=== PATIENT | male | born 1990 | race Caucasian/White ===

== ENCOUNTER 2016-12-26 12:05 | Inpatient (IN) | payer OTHER ==
[~2016-12-26] VITALS: Ht 185.4 cm; Wt 86.8 kg
[~2016-12-26 12:05] MED LIST: BUSPAR15 MG PO; CITALOPRAM HBR20 MG PO; GABAPENTIN100 MG PO; GABAPENTIN400 MG PO; GABAPENTIN600 MG PO; GABAPENTIN800 MG PO; METHADONE HCL40 MG PO; METHADONE1 MG/1 ML PO; METHADONE10 MG/1 M1 PO; MOTRIN800 MG PO; NAPROXEN500 MG PO; NO HOME MEDS; NOHOMEMEDS; NORCO 5/3251 TABLET PO; QUETIAPINE FUM100 MG PO; QUETIAPINE FUM200 MG PO; QUETIAPINE FUM300 MG PO; SEROQUEL400 MG PO; XANAX2 MG PO
[2016-12-26 13:32] LABS: EOSINOPHIL (%) 6.4 % (0-5); EOSINOPHIL COUNT 0.4 K/uL (0-0.3); HEMATOCRIT 36.4 % (38.0-50.0); IMMATURE GRANULOCYTE (%) 0.4 % (0.0-0.7); INSTRUMENT ABS NEUTROPHIL CT 3.4 K/uL; LYMPHOCYTE COUNT 1.3 K/uL (1.0-2.8); MCH 29.9 PG (29.0-34.0); MCHC 35.4 G/DL (30.0-36.0); MCV 84.5 FL (86-99); MEAN PLAT.VOLUME 8.6 uM^3 (9.0-12.4); MONOCYTE (%) 8.9 % (3-12); MONOCYTE COUNT 0.5 K/uL (0-0.8); NEUTROPHIL (%) 61.2 % (45-76); NEUTROPHIL COUNT 3.4 K/uL (1.8-6.4); PLATELET COUNT 272 K/uL (156-360); RBC DIS.WIDTH-CV 12.6 % (11.8-14.6); RED BLOOD COUNT 4.31 M/uL (4.00-5.50); WHITE BLOOD COUNT 5.6 K/uL (4.1-10.2)
[2016-12-26 13:53] LABS: CHLORIDE 104 mEq/L (99-109); POTASSIUM 4.1 mEq/L (3.7-5.4); SODIUM 140 mEq/L (136-147)
[2016-12-26 13:56] LABS: GLUCOSE 123 mg/dL (70-99)
[2016-12-26 13:57] LABS: ANION GAP 10 MEQ/L (2-14); TOTAL BILIRUBIN 1.1 mg/dL (0.0-1.0)
[2016-12-26 13:59] LABS: ALKALINE PHOSPHATASE 88 IU/L (3-129); GFR ESTIMATE (CALCULATED) > 59 mL/min/; SERUM ETHYL ALCOHOL < 10 mg/dL
[2016-12-26 14:00] LABS: UREA NITROGEN (BUN) 24 mg/dL (9-23)
[2016-12-27 01:37] VITALS: BP 128/83
[2016-12-27 08:10] VITALS: BP 110/64
[2016-12-27 15:48] VITALS: BP 110/54
[2016-12-27 17:50] LABS: AMPHETAMINES QUANT VALUE 0 NG/ML; BARBITUATES QUANT VALUE 0 NG/ML; BENZODIAZEPINES, URINE SCREEN POSITIVE (200 ng/mL); OPIATES QUANTITATIVE VALUE 0 NG/ML
[2016-12-27 18:47] VITALS: BP 92/53
[2016-12-28 08:01] VITALS: BP 121/79
[2016-12-28 15:33] VITALS: BP 93/50
[2016-12-29 08:11] VITALS: BP 114/60
[2016-12-29 15:56] VITALS: BP 111/65
[2016-12-30 08:08] VITALS: BP 122/60
[2016-12-30 15:20] VITALS: BP 130/92
[2016-12-31 07:48] VITALS: BP 125/69
[2016-12-31 15:16] VITALS: BP 126/86
[2017-01-01 06:00] VITALS: BP 96/51
[2017-01-01 06:30] VITALS: BP 106/77
[2017-01-01 09:21] VITALS: BP 117/67
[2017-01-01 15:36] VITALS: BP 108/55
[2017-01-01 22:07] VITALS: BP 115/55
[2017-01-02 05:52] VITALS: BP 121/60
[2017-01-02 08:56] VITALS: BP 108/53
[2017-01-02 15:32] VITALS: BP 123/67
[2017-01-03 08:11] VITALS: BP 100/57
[2017-01-03 16:17] VITALS: BP 125/76
[2017-01-04 07:39] VITALS: BP 95/59
[2017-01-04 15:28] VITALS: BP 149/86
[2017-01-05 08:09] VITALS: BP 133/63
[2017-01-05 15:42] VITALS: BP 140/82
[2017-01-06 07:51] VITALS: BP 114/66
[2017-01-06 15:31] VITALS: BP 130/77
[2017-01-07 07:39] VITALS: BP 123/78
[2017-01-07 16:12] VITALS: BP 129/84
[2017-01-08 08:15] VITALS: BP 113/68
[2017-01-08 16:23] VITALS: BP 158/77
[2017-01-08 19:22] VITALS: BP 116/58
[2017-01-09 08:03] VITALS: BP 118/67
[2017-01-09 15:51] VITALS: BP 142/58
[2017-01-10 07:47] VITALS: BP 97/53
[2017-01-10 13:09] VITALS: BP 134/79
[2017-01-10 15:31] VITALS: BP 118/64
[2017-01-11 07:49] VITALS: BP 104/58
[2017-01-11 15:34] VITALS: BP 130/66
[2017-01-12 07:50] VITALS: BP 117/65
[2017-01-12 15:55] VITALS: BP 105/57
[2017-01-13 07:56] VITALS: BP 133/68
[2017-01-13] MEDS ORDERED: GABAPENTIN400 MG PO (09:23)
[2017-01-13] MEDS ORDERED: COGENTIN0.5 MG PO (09:23)
[2017-01-13] MEDS ORDERED: PRAZOSIN HCL1 MG PO (09:23)
[2017-01-13] MEDS ORDERED: METHADONE10 MG PO (09:23)
[2017-01-13] MEDS ORDERED: BUPROPION HCL150 M2 PO (09:23)
[2017-01-13] MEDS ORDERED: OLANZAPINE10 MG PO (09:23)
[2017-01-13] MEDS ORDERED: HALDOL5 MG PO ×2 (09:23)
== END 2017-01-13 12:49 | disposition home or self-care (01) | DRG 885 ==
LOC: EME → EDBD 12:05 → 1WEST 16:30 → EDOF 16:30 → 1WEST 12-27 01:28
PROVIDERS: Emergency Medicine
DX: F33.9 Major depressive disorder, recurrent, unspecified (principal); R45.850 Homicidal ideations; R45.851 Suicidal ideations; F41.1 Generalized anxiety disorder; F16.159 Hallucinogen abuse with hallucinogen-induced psychotic disorder, unspecified; F11.20 Opioid dependence, uncomplicated; F14.10 Cocaine abuse, uncomplicated; F13.10 Sedative, hypnotic or anxiolytic abuse, uncomplicated; F60.2 Antisocial personality disorder; E86.0 Dehydration; Z91.14 Patient's other noncompliance with medication regimen
CPT/HCPCS: 71020; 73130; 80053; 80306 90; 85025; 97150 GO; 97165 GO; 99281; 99285; G0480; J1630; J2060; Q0177

== ENCOUNTER 2017-01-15 18:22 | Inpatient (IN) | payer OTHER ==
[~2017-01-15] VITALS: Ht 182.9 cm; Wt 85.0 kg
[~2017-01-15 18:22] MED LIST changes: +BUPROPION HCL150 M2 PO; +COGENTIN0.5 MG PO; +HALDOL5 MG PO; +METHADONE10 MG PO; +OLANZAPINE10 MG PO; +PRAZOSIN HCL1 MG PO
[2017-01-15 19:07] LABS: HEMATOCRIT 42.4 % (38.0-50.0); MCH 29.5 PG (29.0-34.0); MCHC 35.6 G/DL (30.0-36.0); MCV 82.8 FL (86-99); MEAN PLAT.VOLUME 8.8 uM^3 (9.0-12.4); PLATELET COUNT 341 K/uL (156-360); RBC DIS.WIDTH-CV 12.3 % (11.8-14.6); RBC DIS.WIDTH-SD 37.1 % (39-53); RED BLOOD COUNT 5.12 M/uL (4.00-5.50)
[2017-01-15 19:08] LABS: WHITE BLOOD COUNT 8.8 K/uL (4.1-10.2)
[2017-01-15 19:13] LABS: CHLORIDE 105 mEq/L (99-109); POTASSIUM 4.7 mEq/L (3.7-5.4); SODIUM 139 mEq/L (136-147)
[2017-01-15 19:15] LABS: GLUCOSE 94 mg/dL (70-99)
[2017-01-15 19:16] LABS: ANION GAP 12 MEQ/L (2-14)
[2017-01-15 19:18] LABS: SERUM ETHYL ALCOHOL < 10 mg/dL
[2017-01-15 19:19] LABS: GFR ESTIMATE (CALCULATED) > 59 mL/min/
[2017-01-15 19:20] LABS: UREA NITROGEN (BUN) 26 mg/dL (9-23)
[2017-01-15 22:29] LABS: ADD MEDTOX COMMENT Y; AMPHETAMINE NEGATIVE (500 ng/mL); BARBITURATES NEGATIVE (200 ng/mL); BENZODIAZEPINES PRESUMPTIVE POSITIVE (150 ng/mL); COCAINE PRESUMPTIVE POSITIVE (150 ng/mL); INTERNAL CONTROLS VALID? YES; METHADONE PRESUMPTIVE POSITIVE (200 ng/mL); METHAMPHETAMINE NEGATIVE (500 ng/mL); OPIATES (MORPHINE) NEGATIVE (100 ng/mL); OXYCODONE NEGATIVE (100 ng/mL); PHENCYCLIDINE NEGATIVE (25 ng/mL); PROPOXYPHENE NEGATIVE (300 ng/mL); THC CANNABINOIDS NEGATIVE (50 ng/mL); TRICYCLIC ANTIDEPRESSANTS NEGATIVE (300 ng/mL)
[2017-01-15 22:56] LABS: BENZODIAZEPINES, URINE SCREEN POSITIVE (200 ng/mL)
[2017-01-16 00:51] VITALS: BP 122/76
[2017-01-16 07:36] VITALS: BP 120/69
[2017-01-16 15:45] VITALS: BP 113/59
[2017-01-17 07:58] VITALS: BP 130/70
[2017-01-17 16:13] VITALS: BP 127/78
[2017-01-18 08:10] VITALS: BP 105/55
[2017-01-19] MEDS ORDERED: UNABLE TO OBTAIN (18:09)
== END 2017-01-18 12:18 | disposition home or self-care (01) | DRG 881 ==
LOC: EME 18:22 → 1WEST 22:54 → EDOF 22:54 → 1WEST 22:54
DX: F32.9 Major depressive disorder, single episode, unspecified (principal); F60.2 Antisocial personality disorder; F11.20 Opioid dependence, uncomplicated; F16.10 Hallucinogen abuse, uncomplicated; F13.10 Sedative, hypnotic or anxiolytic abuse, uncomplicated; R44.0 Auditory hallucinations; F17.210 Nicotine dependence, cigarettes, uncomplicated
CPT/HCPCS: 80048; 84999; 85027; 90839; 97150 GO; 97166 GO; 99281; 99285; G0480; J0572; J0574; J1630; J2060

== ENCOUNTER 2017-01-19 14:28 | Emergency (ER) | payer OTHER ==
[~2017-01-19] VITALS: Ht 182.9 cm; Wt 87.7 kg
[2017-01-19 15:59] LABS: HEMATOCRIT 37.4 % (38.0-50.0); MCH 29.7 PG (29.0-34.0); MCHC 36.1 G/DL (30.0-36.0); MCV 82.4 FL (86-99); MEAN PLAT.VOLUME 8.5 uM^3 (9.0-12.4); PLATELET COUNT 256 K/uL (156-360); RBC DIS.WIDTH-CV 12.3 % (11.8-14.6); RBC DIS.WIDTH-SD 37.1 % (39-53); RED BLOOD COUNT 4.54 M/uL (4.00-5.50); WHITE BLOOD COUNT 7.3 K/uL (4.1-10.2)
[2017-01-19 16:14] LABS: ANION GAP 11 MEQ/L (2-14); CHLORIDE 103 MEQ/L (99-109); POTASSIUM 4.2 MEQ/L (3.7-5.4); SAMPLE HEMOLYSIS CHECK 0; SAMPLE ICTERIC CHECK 0; SAMPLE LIPEMIA CHECK 0; SODIUM 136 MEQ/L (136-147)
[2017-01-19 16:20] LABS: GFR ESTIMATE (CALCULATED) > 59 mL/min/; GLUCOSE 100 mg/dL (70-99); SERUM ETHYL ALCOHOL < 10 mg/dL; UREA NITROGEN (BUN) 22 mg/dL (9-23)
[2017-01-19 18:08] VITALS: BP 124/76
[2017-01-19] MEDS ORDERED: UNABLE TO OBTAIN (18:09)
== END 2017-01-19 18:12 | disposition home or self-care (01) ==
LOC: EME 14:28
PROVIDERS: Emergency Medicine
DX: F19.10 Other psychoactive substance abuse, uncomplicated (principal); R56.9 Unspecified convulsions; R51 Headache; R47.81 Slurred speech; R45.1 Restlessness and agitation; R00.0 Tachycardia, unspecified; F17.200 Nicotine dependence, unspecified, uncomplicated
CPT/HCPCS: 70450; 80048; 85027; 99281; 99285; G0480; J2060; J7030

== ENCOUNTER 2017-02-02 19:02 | Emergency (ER) | payer OTHER ==
[~2017-02-02] VITALS: Ht 185.4 cm; Wt 85.8 kg
[~2017-02-02 19:02] MED LIST changes: +UNABLE TO OBTAIN
[2017-02-02 21:21] LABS: CHLORIDE 108 mEq/L (99-109); POTASSIUM 3.8 mEq/L (3.7-5.4); SODIUM 142 mEq/L (136-147)
[2017-02-02 21:23] LABS: GLUCOSE 116 mg/dL (70-99); HEMATOCRIT 41.4 % (38.0-50.0); MCH 29.7 PG (29.0-34.0); MCV 84.7 FL (86-99); MEAN PLAT.VOLUME 8.5 uM^3 (9.0-12.4); PLATELET COUNT 255 K/uL (156-360); RBC DIS.WIDTH-CV 13.4 % (11.8-14.6); RED BLOOD COUNT 4.89 M/uL (4.00-5.50)
[2017-02-02 21:24] LABS: ANION GAP 11 MEQ/L (2-14)
[2017-02-02 21:25] LABS: TOTAL BILIRUBIN 1.4 mg/dL (0.0-1.0)
[2017-02-02 21:27] LABS: ALKALINE PHOSPHATASE 114 IU/L (3-129); GFR ESTIMATE (CALCULATED) > 59 mL/min/; WHITE BLOOD COUNT 9.6 K/uL (4.1-10.2)
[2017-02-02 21:28] LABS: UREA NITROGEN (BUN) 13 mg/dL (9-23)
[2017-02-02 23:45] VITALS: BP 111/66
== END 2017-02-02 23:46 | disposition home or self-care (01) ==
LOC: EME 19:02
PROVIDERS: Physician Assistant
DX: G24.09 Other drug induced dystonia (principal); M62.838 Other muscle spasm; F17.200 Nicotine dependence, unspecified, uncomplicated; K02.9 Dental caries, unspecified
CPT/HCPCS: 80053; 81003; 85027; 99281; 99284; J0515; J1885; J3360

== ENCOUNTER 2017-04-01 15:42 | Inpatient (IN) | payer OTHER ==
[~2017-04-01] VITALS: Ht 185.4 cm; Wt 79.4 kg
[2017-04-01 17:34] LABS: EOSINOPHIL (%) 3.6 % (0-5); EOSINOPHIL COUNT 0.3 K/uL (0-0.3); IMMATURE GRANULOCYTE (%) 0.4 % (0.0-0.7); INSTRUMENT ABS NEUTROPHIL CT 4.7 K/uL; LYMPHOCYTE COUNT 1.9 K/uL (1.0-2.8); MCH 29.9 PG (29.0-34.0); MCHC 35.5 G/DL (30.0-36.0); MCV 84.2 FL (86-99); MEAN PLAT.VOLUME 8.7 uM^3 (9.0-12.4); MONOCYTE (%) 5.9 % (3-12); MONOCYTE COUNT 0.4 K/uL (0-0.8); NEUTROPHIL (%) 63.9 % (45-76); NEUTROPHIL COUNT 4.7 K/uL (1.8-6.4); PLATELET COUNT 227 K/uL (156-360); RBC DIS.WIDTH-CV 12.2 % (11.8-14.6); RBC DIS.WIDTH-SD 37.1 % (39-53); RED BLOOD COUNT 4.75 M/uL (4.00-5.50); WHITE BLOOD COUNT 7.4 K/uL (4.1-10.2)
[2017-04-01 17:44] LABS: CHLORIDE 105 mEq/L (99-109); POTASSIUM 3.5 mEq/L (3.7-5.4); SODIUM 139 mEq/L (136-147)
[2017-04-01 17:46] LABS: GLUCOSE 88 mg/dL (70-99)
[2017-04-01 17:47] LABS: ANION GAP 10 MEQ/L (2-14)
[2017-04-01 17:49] LABS: SERUM ETHYL ALCOHOL < 10 mg/dL
[2017-04-01 17:50] LABS: GFR ESTIMATE (CALCULATED) > 59 mL/min/; UREA NITROGEN (BUN) 17 mg/dL (9-23)
[2017-04-01 22:58] LABS: AMPHETAMINE NEGATIVE (500 ng/mL); BARBITURATES NEGATIVE (200 ng/mL); BENZODIAZEPINES PRESUMPTIVE POSITIVE (150 ng/mL); COCAINE PRESUMPTIVE POSITIVE (150 ng/mL); INTERNAL CONTROLS VALID? YES; METHADONE NEGATIVE (200 ng/mL); METHAMPHETAMINE NEGATIVE (500 ng/mL); OPIATES (MORPHINE) PRESUMPTIVE POSITIVE (100 ng/mL); OXYCODONE NEGATIVE (100 ng/mL); PHENCYCLIDINE NEGATIVE (25 ng/mL); PROPOXYPHENE NEGATIVE (300 ng/mL); THC CANNABINOIDS PRESUMPTIVE POSITIVE (50 ng/mL); TRICYCLIC ANTIDEPRESSANTS NEGATIVE (300 ng/mL)
[2017-04-01 22:59] LABS: ADD MEDTOX COMMENT Y
[2017-04-02 00:12] LABS: BENZODIAZEPINES, URINE SCREEN POSITIVE (200 ng/mL)
[2017-04-02 03:15] VITALS: BP 131/56
[2017-04-02 07:24] VITALS: BP 126/63
[2017-04-02] MEDS ORDERED: BUPROPION HCL150 M2 PO (10:05)
[2017-04-02] MEDS ORDERED: PRAZOSIN HCL1 MG PO (10:05)
[2017-04-02] MEDS ORDERED: GABAPENTIN400 MG PO (10:05)
== END 2017-04-02 12:40 | disposition home or self-care (01) | DRG 882 ==
LOC: EME 15:42 → 1WEST 04-02 01:45 → EDOF 04-02 01:45 → 1WEST 04-02 02:47
PROVIDERS: Emergency Medicine
DX: F43.10 Post-traumatic stress disorder, unspecified (principal); F11.20 Opioid dependence, uncomplicated; F14.20 Cocaine dependence, uncomplicated; F60.2 Antisocial personality disorder; F32.9 Major depressive disorder, single episode, unspecified; F29 Unspecified psychosis not due to a substance or known physiological condition; F17.200 Nicotine dependence, unspecified, uncomplicated; W22.01XA Walked into wall, initial encounter; Z87.442 Personal history of urinary calculi
CPT/HCPCS: 80048; 84999; 85025; 90837; 99281; 99285; G0480; J1630; J2060

== ENCOUNTER 2017-04-03 22:44 | Emergency (ER) | payer OTHER ==
[~2017-04-03] VITALS: Ht 175.3 cm; Wt 77.2 kg
[2017-04-03 23:28] LABS: BASOPHIL COUNT 0.1 K/uL (0-0.1); EOSINOPHIL (%) 4.5 % (0-5); EOSINOPHIL COUNT 0.4 K/uL (0-0.3); IMMATURE GRANULOCYTE (%) 0.3 % (0.0-0.7); INSTRUMENT ABS NEUTROPHIL CT 7.1 K/uL; LYMPHOCYTE COUNT 1.3 K/uL (1.0-2.8); MCH 29.8 PG (29.0-34.0); MCHC 35.2 G/DL (30.0-36.0); MCV 84.7 FL (86-99); MEAN PLAT.VOLUME 8.8 uM^3 (9.0-12.4); MONOCYTE (%) 6.1 % (3-12); MONOCYTE COUNT 0.6 K/uL (0-0.8); NEUTROPHIL (%) 74.6 % (45-76); NEUTROPHIL COUNT 7.1 K/uL (1.8-6.4); RBC DIS.WIDTH-CV 12.3 % (11.8-14.6); RBC DIS.WIDTH-SD 37.6 % (39-53); RED BLOOD COUNT 4.96 M/uL (4.00-5.50); WHITE BLOOD COUNT 9.5 K/uL (4.1-10.2)
[2017-04-03 23:29] LABS: PLATELET COUNT 315 K/uL (156-360)
[2017-04-03 23:32] LABS: CHLORIDE 110 mEq/L (99-109); SODIUM 143 mEq/L (136-147)
[2017-04-03 23:34] LABS: GLUCOSE 104 mg/dL (70-99)
[2017-04-03 23:35] LABS: ANION GAP 10 MEQ/L (2-14)
[2017-04-03 23:36] LABS: TOTAL BILIRUBIN 1.9 mg/dL (0.0-1.0)
[2017-04-03 23:37] LABS: SERUM ETHYL ALCOHOL < 10 mg/dL
[2017-04-03 23:38] LABS: GFR ESTIMATE (CALCULATED) > 59 mL/min/; POTASSIUM 5.2 mEq/L (3.7-5.4)
[2017-04-03 23:39] LABS: ALKALINE PHOSPHATASE 88 IU/L (3-129)
[2017-04-03 23:40] LABS: UREA NITROGEN (BUN) 19 mg/dL (9-23)
[2017-04-03 23:41] LABS: SALICYLATE < 5.0 MG/DL (15-30)
[2017-04-03 23:42] LABS: CREATINE KINASE 913 IU/L (1-294); TOTAL CK 913 IU/L (1-294)
[2017-04-03 23:49] LABS: CK-MB 3.3 ng/mL (0.0-4.9)
[2017-04-04 00:48] LABS: BILIRUBIN NEGATIVE; BLOOD NEGATIVE; COLOR YELLOW ((YELLOW)); GLUCOSE (STRIP) NEGATIVE; KETONES 5; LEUKOCYTES NEGATIVE; NITRITE NEGATIVE; PROTEIN (STRIP) NEGATIVE; SPECIFIC GRAVITY 1.021 (1.000-1.030); UROBILINOGEN 0.2 MG/DL (0.2-1.0)
[2017-04-04 00:53] LABS: ADD MIUA? NO; UCUL ADDED? NO
[2017-04-04 00:59] LABS: AMPHETAMINE NEGATIVE (500 ng/mL); BARBITURATES NEGATIVE (200 ng/mL); BENZODIAZEPINES PRESUMPTIVE POSITIVE (150 ng/mL); COCAINE PRESUMPTIVE POSITIVE (150 ng/mL); METHADONE NEGATIVE (200 ng/mL); METHAMPHETAMINE NEGATIVE (500 ng/mL); OPIATES (MORPHINE) PRESUMPTIVE POSITIVE (100 ng/mL); OXYCODONE NEGATIVE (100 ng/mL); PHENCYCLIDINE NEGATIVE (25 ng/mL); PROPOXYPHENE NEGATIVE (300 ng/mL); THC CANNABINOIDS PRESUMPTIVE POSITIVE (50 ng/mL); TRICYCLIC ANTIDEPRESSANTS NEGATIVE (300 ng/mL)
[2017-04-04 01:00] LABS: ADD MEDTOX COMMENT Y; INTERNAL CONTROLS VALID? YES
[2017-04-04 01:39] VITALS: BP 140/90
[2017-04-04 02:08] LABS: BENZODIAZEPINES, URINE SCREEN POSITIVE (200 ng/mL)
== END 2017-04-04 01:40 | disposition left against medical advice (07) ==
LOC: EME → EDBD 22:44 → EME 04-04 01:40
PROVIDERS: Emergency Medicine
DX: T43.291A Poisoning by other antidepressants, accidental (unintentional), initial encounter (principal); R56.9 Unspecified convulsions; F19.10 Other psychoactive substance abuse, uncomplicated; S00.83XA Contusion of other part of head, initial encounter; W19.XXXA Unspecified fall, initial encounter; F43.10 Post-traumatic stress disorder, unspecified; F31.9 Bipolar disorder, unspecified; F41.9 Anxiety disorder, unspecified; F11.10 Opioid abuse, uncomplicated; F17.200 Nicotine dependence, unspecified, uncomplicated
CPT/HCPCS: 70450; 72125; 80053; 81003; 82550; 82553; 84999; 85025; 93005; 99281; 99284; G0480; J2060; J7030

== ENCOUNTER 2017-12-12 10:41 | Emergency (ER) | payer OTHER ==
[~2017-12-12] VITALS: Ht 185.4 cm; Wt 81.7 kg
[2017-12-12] MEDS ORDERED: NORCO 5/3251 TABLET PO (13:29)
[2017-12-12] MEDS ORDERED: FLEXERIL10 MG PO (13:29)
[2017-12-12 13:47] VITALS: BP 139/90
== END 2017-12-12 13:48 | disposition home or self-care (01) ==
LOC: EME 10:41
DX: M54.5 Low back pain (principal); F17.200 Nicotine dependence, unspecified, uncomplicated
CPT/HCPCS: 99281; 99284; J1100

== ENCOUNTER 2018-02-23 02:09 | Emergency (ER) | payer OTHER ==
[~2018-02-23] VITALS: Ht 182.9 cm; Wt 68.8 kg
[~2018-02-23 02:09] MED LIST changes: +FLEXERIL10 MG PO
[2018-02-23 02:42] LABS: HEMATOCRIT 39.2 % (38.0-50.0); HEMOGLOBIN 14.2 G/DL (12.5-16.6); MCH 30.5 PG (29.0-34.0); MCHC 36.2 G/DL (30.0-36.0); MCV 84.1 FL (86-99); PLATELET COUNT 268 K/uL (156-360); RBC DIS.WIDTH-CV 12.4 % (11.8-14.6); RBC DIS.WIDTH-SD 37.4 % (39-53); RED BLOOD COUNT 4.66 M/uL (4.00-5.50); WHITE BLOOD COUNT 13.2 K/uL (4.1-10.2)
[2018-02-23 02:56] LABS: CHLORIDE 103 mEq/L (99-109)
[2018-02-23 02:57] LABS: POTASSIUM 4.3 mEq/L (3.7-5.4); SODIUM 138 mEq/L (136-147)
[2018-02-23 02:58] LABS: GLUCOSE 111 mg/dL (70-99)
[2018-02-23 03:02] LABS: CREATININE 1.1 mg/dL (0.6-1.3); GFR ESTIMATE (CALCULATED) > 59 mL/min/ (58.99-99999)
[2018-02-23 03:03] LABS: UREA NITROGEN (BUN) 23 mg/dL (9-23)
[2018-02-23 03:11] LABS: TROP-I INTERPRETATION NEGATIVE; TROPONIN-I < 0.01 ng/mL (0.0-0.30)
[2018-02-23 04:45] VITALS: BP 113/74
== END 2018-02-23 04:45 | disposition left against medical advice (07) ==
LOC: EME → EDBD 02:09 → EME 04:45
PROVIDERS: Emergency Medicine
DX: R07.9 Chest pain, unspecified (principal); F14.10 Cocaine abuse, uncomplicated; F31.9 Bipolar disorder, unspecified; F17.200 Nicotine dependence, unspecified, uncomplicated; Z87.442 Personal history of urinary calculi
CPT/HCPCS: 71046; 80048; 84484; 85027; 93005; 99281; 99285; J2060; J7030